=== PATIENT | male | born 1970 | race Caucasian/White ===

== ENCOUNTER 2016-12-03 11:17 | Emergency (ER) | payer OTHER ==
[~2016-12-03] VITALS: Ht 172.7 cm; Wt 93.0 kg
[~2016-12-03 11:17] MED LIST: GEODON60 MG PO; KEPPRA500 MG PO; REMERON30 MG PO; RISPERDAL1 MG PO; SYNTHROID75 MCG PO; TRAZODONE HCL150 MG PO
[2016-12-03] MEDS ORDERED: KEPPRA750 MG PO (11:31)
[2016-12-03] MEDS ORDERED: LIPITOR40 MG PO (11:31)
[2016-12-03] MEDS ORDERED: BUSPIRONE HCL10 MG PO (11:32)
[2016-12-03] MEDS ORDERED: TOPROL XL25 MG PO (11:33)
[2016-12-03] MEDS ORDERED: LAMICTAL100 MG PO (11:33)
[2016-12-03] MEDS ORDERED: DIPHENHYDRAMINE50 M1 PO (11:33)
== END 2016-12-03 13:44 | disposition home or self-care (01) ==
LOC: ED 11:17
DX: G40.909 Epilepsy, unspecified, not intractable, without status epilepticus (principal); F32.9 Major depressive disorder, single episode, unspecified; Z87.442 Personal history of urinary calculi; E03.9 Hypothyroidism, unspecified; Z87.891 Personal history of nicotine dependence; Z88.0 Allergy status to penicillin; Z79.899 Other long term (current) drug therapy
CPT/HCPCS: 80053; 81001; 82542; 85025; 99284; G0480